=== PATIENT | male | born 1970 | race Caucasian/White ===

== ENCOUNTER → 2016-12-01 | Outpatient (CLI) | payer OTHER ==
[~2016-12-01] MED LIST: FLEXERIL10 MG PO; HYDROCODONE BIT1 T11 PO; IBU-8800 MG PO; KEFLEX500 MG PO; MOTRIN800 MG PO; NAPROSYN500 MG PO; NICODERM21 MG/24 H TD; NKHM; PERCOCET 325 MG1 TA2 PO; PROAIR HFA0.09 MG/AC IH; VALIUM10 MG PO; VICODIN ES 7501 TAB PO
[2016-12-01 15:08] LABS: BASO % 0.3 % (0.0-1.0); EOS # 0.1 10*3/uL (0.0-0.4); EOS % 1.4 % (1.0-4.0); HEMATOCRIT 40.7 % (42.0-52.0); HEMOGLOBIN 13.7 g/dl (14.0-18.0); LYMPH # 2.9 10*3/uL (1.3-4.4); LYMPH % 33.8 % (27.0-41.0); MEAN CELL VOLUME 90.8 fl (80.0-94.0); MEAN CORPUSCULAR HGB 30.6 pg (27.0-31.0); MEAN CORPUSCULAR HGB CONC 33.7 g/dl (33.0-37.0); MEAN PLATELET VOLUME 9.4 fl (9.6-12.3); MONO # 0.6 10*3/uL (0.1-1.0); MONO % 7.2 % (3.0-9.0); NEUT # 4.9 10*3/uL (2.3-7.9); NEUT % 57.1 % (47.0-73.0); PLATELET COUNT AUTOMATED 374 10*3/uL (130-400); RED BLOOD COUNT 4.48 10*6/uL (4.50-5.90); WHITE BLOOD COUNT 8.6 10*3/uL (4.8-10.8)
[2016-12-01 15:38] LABS: ALBUMIN 3.5 gm/dl (3.1-4.5); BILIRUBIN, TOTAL 0.3 mg/dl (0.2-1.0); BUN 9 mg/dl (7-24); CARBON DIOXIDE 29 mmol/L (21-32); CHLORIDE 105 mmol/L (98-107); EST GLOM FILT AFRICAN AMERICAN > 60 ml/min; GLUCOSE 116 mg/dL (65-99); SGOT/AST 14 IU/L (3-35); SGPT/ALT 19 U/L (12-78); SODIUM 139 mmol/L (136-145); TOTAL PROTEIN 7.5 gm/dL (6.4-8.2)
[2016-12-01 15:45] LABS: FOLIC ACID 6.85 ng/mL (>5.38)
[2016-12-01 15:48] LABS: ALKALINE PHOSPHATASE 111 U/L (45-117)
== END | disposition home or self-care (01) ==
LOC: LAB 14:51
PROVIDERS: Internal Medicine
DX: G60.9 Hereditary and idiopathic neuropathy, unspecified (principal)

== ENCOUNTER → 2018-01-14 | Outpatient (CLI) | payer OTHER ==
[2018-01-14 13:17] LABS: HEMATOCRIT 40.5 % (42.0-52.0); HEMOGLOBIN 13.7 g/dl (14.0-18.0); MEAN CELL VOLUME 90.6 fl (80.0-94.0); MEAN CORPUSCULAR HGB 30.6 pg (27.0-31.0); MEAN CORPUSCULAR HGB CONC 33.8 g/dl (33.0-37.0); MEAN PLATELET VOLUME 10.1 fl (9.6-12.3); RED BLOOD COUNT 4.47 10*6/uL (4.50-5.90); RED CELL DISTRI WIDTH 13.3 % (0-14.5); WHITE BLOOD COUNT 10.4 10*3/uL (4.8-10.8)
[2018-01-14 13:49] LABS: ALBUMIN 3.9 gm/dl (3.1-4.5); ALKALINE PHOSPHATASE 101 U/L (45-117); BUN 9 mg/dl (7-24); CHLORIDE 105 mmol/L (98-107); CHOLESTEROL 173 mg/dL (<200); CREATININE 0.94 mg/dL (0.70-1.30); HDL CHOLESTEROL 39 mg/dl (40-60); LDL CHOLESTEROL 85 mg/dL (9-159); POTASSIUM 3.8 mmol/L (3.5-5.1); SGOT/AST 12 IU/L (3-35); SGPT/ALT 16 U/L (12-78); SODIUM 141 mmol/L (136-145); TRIGLYCERIDES 243 mg/dl (<150); VLDL CHOLESTEROL 49 mg/dL (6-40)
[2018-01-14 13:58] LABS: CARBAMAZEPINE (TEGRETOL) TOTAL 7.4 ug/ml (4-12)
== END | disposition home or self-care (01) ==
LOC: LAB 12:39
PROVIDERS: Physician Assistant
DX: Z12.5 Encounter for screening for malignant neoplasm of prostate (principal); R56.9 Unspecified convulsions; M25.561 Pain in right knee; M25.579 Pain in unspecified ankle and joints of unspecified foot; F17.200 Nicotine dependence, unspecified, uncomplicated

== ENCOUNTER 2024-06-16 17:04 | Inpatient (IN) | payer SELFPAY ==
[~2024-06-16] VITALS: Ht 177.8 cm; Wt 86.2 kg
[2024-06-16 17:48] VITALS: BP 148/82
[2024-06-16] MEDS ORDERED: Albuterol Sulf/Ipratropium 3 ML VIAL NEB ONE (17:55)
[2024-06-16 18:14] LABS: BASO % 0.2 % (0.0-1.0); EOS % 0.4 % (1.0-4.0); HEMATOCRIT 42.2 % (42.0-52.0); MEAN CELL VOLUME 92.1 fl (80.0-94.0); MEAN CORPUSCULAR HGB CONC 31.5 g/dl (33.0-37.0); MEAN PLATELET VOLUME 9.8 fl (9.6-12.3); MONO # 1.1 10*3/uL (0.1-1.0); MONO % 12.8 % (3.0-9.0); NEUT # 5.4 10*3/uL (2.3-7.9); NEUT % 65.5 % (47.0-73.0); PLATELET COUNT AUTOMATED 259 10*3/uL (130-400); RED BLOOD COUNT 4.58 10*6/uL (4.50-5.90); RED CELL DISTRI WIDTH 14.2 % (0-14.5); WHITE BLOOD COUNT 8.2 10*3/uL (4.8-10.8)
[2024-06-16 18:33] LABS: BUN 13 mg/dl (9-23); CHLORIDE 95 mmol/L (98-107)
[2024-06-16] MEDS ORDERED: Ceftriaxone Sodium 1 GM/10 ML SYR IV ONE (18:45)
[2024-06-16] MEDS ORDERED: AZITHROMYCIN 250 ML IV ONE (18:45)
[2024-06-16 19:39] VITALS: BP 112/62
[2024-06-16] MEDS ORDERED: BUPRENORPHINE-1 EAC2 SL (19:41)
[2024-06-16] MEDS ORDERED: Magnesium Hydroxide 30 ML UDC PO PRN (20:00)
[2024-06-16] MEDS ORDERED: Ondansetron Hydrochloride 4 MG/2 ML VIAL IV PRN (20:00)
[2024-06-16] MEDS ORDERED: BISACODYL 10 MG SUPP R PRN (20:00)
[2024-06-16] MEDS ORDERED: BISACODYL 5 MG TAB PO PRN (20:00)
[2024-06-16] MEDS ORDERED: Albuterol Sulf/Ipratropium 3 ML VIAL NEB PRN (20:05)
[2024-06-16] MEDS ORDERED: methylPREDNISolone sod succ 40 MG VIAL IV SCH (22:00)
[2024-06-16] MEDS ORDERED: GUAIFENESIN 600 MG TAB ER PO SCH (22:00)
[2024-06-16 23:24] VITALS: BP 134/99
[2024-06-16 23:40] VITALS: BP 143/66
[2024-06-16 23:50] LABS: ARTERIAL BLOOD GAS PH 7.253 (7.350-7.450)
[2024-06-16] MEDS ORDERED: DIAZEPAM 10 MG/2 ML SYR IV ONE (23:50)
[2024-06-16 23:55] LABS: ABG BASE EXCESS 1.4 mmol/L (-2.0-3.0); ABG O2 SATURATION 90.8 % (94.0-98.0); ARTERIAL BLOOD GAS PO2 60.1 mmHg (83.0-108.0)
[2024-06-17] VITALS (8 sets, daily range): BP systolic 107–142; BP diastolic 61–86
[2024-06-17] MEDS ORDERED: DIAZEPAM 2 ML IV ONE (00:10)
[2024-06-17] MEDS ORDERED: Cyclobenzaprine Hydrochlorid 10 MG TAB PO PRN (02:25)
[2024-06-17 03:08] LABS: ABG O2 SATURATION 95.5 % (94.0-98.0); ARTERIAL BLOOD GAS PH 7.342 (7.350-7.450); ARTERIAL BLOOD GAS PO2 79.8 mmHg (83.0-108.0)
[2024-06-17 03:12] LABS: ABG BASE EXCESS 4.2 mmol/L (-2.0-3.0)
[2024-06-17 06:16] LABS: BUN 13 mg/dl (9-23); CHLORIDE 96 mmol/L (98-107); CHOLESTEROL 113 mg/dL (<200); FREE T4 1.35 ng/dl (0.89-1.76); LDL CHOLESTEROL 65 mg/dL (9-159); POTASSIUM 4.6 mmol/L (3.4-5.1); TRIGLYCERIDES 106 mg/dl (<150)
[2024-06-17 06:17] LABS: MEAN CELL VOLUME 91.7 fl (80.0-94.0); MEAN CORPUSCULAR HGB 28.7 pg (27.0-31.0); MEAN CORPUSCULAR HGB CONC 31.3 g/dl (33.0-37.0); MEAN PLATELET VOLUME 10.2 fl (9.6-12.3); PLATELET COUNT AUTOMATED 248 10*3/uL (130-400); RED BLOOD COUNT 4.36 10*6/uL (4.50-5.90); RED CELL DISTRI WIDTH 14.5 % (0-14.5); WHITE BLOOD COUNT 6.3 10*3/uL (4.8-10.8)
[2024-06-17 06:22] LABS: MANUAL DIFF REFLEX YES
[2024-06-17 07:20] LABS: PLATELET SUFFICIENCY NORMAL (NORMAL); TOTAL CELLS COUNTED 100 #CELLS
[2024-06-17] MEDS ORDERED: Albuterol Sulf/Ipratropium 3 ML VIAL NEB SCH (09:37)
[2024-06-17] MEDS ORDERED: BUPRENORPHINE HCL/NALOXONE 8 MG-2 MG SL TABLET SL SCH (10:00)
[2024-06-17] MEDS ORDERED: GUAIFENESIN 600 MG TAB ER PO SCH (10:00)
[2024-06-17] MEDS ORDERED: Nicotine 21 MG PATCH T SCH (10:00)
[2024-06-17] MEDS ORDERED: Enoxaparin Sodium 40 MG/0.4 ML SYR SC SCH (10:00)
[2024-06-17] MEDS ORDERED: Ceftriaxone Sodium 1 GM in SYRINGE INFUSION 10 ML IV SCH (17:00)
[2024-06-17] MEDS ORDERED: AZITHROMYCIN 250 ML IV SCH (18:00)
[2024-06-17] MEDS ORDERED: NICOTINE POLACRILEX 4 MG GUM PO PRN (22:35)
[2024-06-18] VITALS: BP 115/56
[2024-06-18 05:45] LABS: BUN 12 mg/dl (9-23); CHLORIDE 96 mmol/L (98-107); POTASSIUM 4.6 mmol/L (3.4-5.1)
[2024-06-18 06:28] LABS: HEMATOCRIT 39.9 % (42.0-52.0); MEAN CELL VOLUME 93.2 fl (80.0-94.0); MEAN CORPUSCULAR HGB 28.7 pg (27.0-31.0); MEAN CORPUSCULAR HGB CONC 30.8 g/dl (33.0-37.0); MEAN PLATELET VOLUME 10.5 fl (9.6-12.3); PLATELET COUNT AUTOMATED 286 10*3/uL (130-400); RED BLOOD COUNT 4.28 10*6/uL (4.50-5.90); RED CELL DISTRI WIDTH 14.6 % (0-14.5); WHITE BLOOD COUNT 10.5 10*3/uL (4.8-10.8)
[2024-06-18 06:42] LABS: MANUAL DIFF REFLEX YES
[2024-06-18 07:20] LABS: ATYPICAL LYMPHS 4 % (0-0); BURR CELLS FEW; OVALOCYTES FEW; PLATELET SUFFICIENCY NORMAL (NORMAL); POLYCHROMASIA SLIGHT; ROULEAUX SLIGHT; TOTAL CELLS COUNTED 100 #CELLS
[2024-06-18 08:00] VITALS: BP 124/69
[2024-06-18 12:00] VITALS: BP 135/61
[2024-06-18] MEDS ORDERED: MUCUS RELIEF E600 MG PO (14:12)
[2024-06-18] MEDS ORDERED: Ipratropium Brom3 ML INH (14:12)
[2024-06-18] MEDS ORDERED: AEROECLIPSE II1 EACH MC (14:12)
[2024-06-18] MEDS ORDERED: PREDNISONE10 MG PO (14:12)
[2024-06-18] MEDS ORDERED: VENT7GM INH (14:12)
[2024-06-18] MEDS ORDERED: ZITHROMAX250 MG PO (14:12)
== END 2024-06-18 14:50 | disposition home or self-care (01) | DRG 189 ==
LOC: ED 17:04 → EDHOLD 19:15 → ICCU 19:15 → 4E 06-18 09:58
PROVIDERS: Internal Medicine; Student in an Organized Health Care Education/Training Program; ADMIT Internal Medicine; ATTEND Internal Medicine
PROC: 5A09357 Assistance with Respiratory Ventilation, Less than 24 Consecutive Hours, Continuous Positive Airway Pressure (ICD-10-PCS; principal; 2024-06-17)
DX: J96.01 Acute respiratory failure with hypoxia (principal); J96.02 Acute respiratory failure with hypercapnia; G89.29 Other chronic pain; R73.9 Hyperglycemia, unspecified; F17.210 Nicotine dependence, cigarettes, uncomplicated; J98.4 Other disorders of lung; Z88.0 Allergy status to penicillin; Z88.8 Allergy status to other drugs, medicaments and biological substances; Z87.81 Personal history of (healed) traumatic fracture; Z86.69 Personal history of other diseases of the nervous system and sense organs; Z71.6 Tobacco abuse counseling